=== PATIENT | female | born 1955 | race Caucasian/White ===

== ENCOUNTER 2016-05-03 17:19 | Outpatient (CLI) | payer OTHER ==
[2016-05-03 17:49] LABS: Bilirubin Negative (Negative); Blood, Urine Moderate (Negative); Clarity Clear (Clear); Glucose, Urine (Dipstick) Negative (Negative); Leukocyte Small (Negative); Nitrite Negative (Negative); Protein, Urine (Dipstick) Negative (Neg-Trace); Urobilinogen 0.2 mg/dL (0.2-1.0)
[2016-05-03 18:04] LABS: Bacteria/HPF 2+ HPF (None Seen)
== END 2016-05-03 17:20 | disposition home or self-care (01) ==
LOC: NAV LAB 17:19
PROVIDERS: ATTEND Family Medicine
DX: N30.01 Acute cystitis with hematuria (principal)
CPT/HCPCS: 81003; 81015; 87077; 87086; 87186

== ENCOUNTER 2023-07-06 20:49 | Emergency (ER) | payer MEDICARE ==
[2023-07-06] MEDS ORDERED: Boostrix 0.5 ML (Tdap) VIAL (>/=7 yrs of age) ONE (21:45)
== END 2023-07-06 22:07 | disposition home or self-care (01) ==
LOC: NAV ERS 20:49
DX: S51.852A Open bite of left forearm, initial encounter (principal); W54.0XXA Bitten by dog, initial encounter
CPT/HCPCS: 90471; 90715